=== PATIENT | female | born 1990 ===

== ENCOUNTER → 2016-11-26 | Day surgery (SDC) | payer OTHER ==
[~2016-11-26] MED LIST: ACETAMINOPHEN 500 MG TAB ONE; ACETAMINOPHEN 500 MG TAB PO ONE; BUPIVACAINE/EPI 0.25% 30 ML SDV ONE; CEFAZOLIN 2 GM/DEXTROSE/100 ML BAG IV ONE; DEXAMETHASONE 4 MG/ML VIAL ONE; KETOROLAC 30 MG/1 ML SDV ONE; LIDOCAINE 1% 5 ML SDV ID PRN; LIDOCAINE 1% 5 ML SDV ONE; LIDOCAINE 2% 5 ML SDV ONE; LIDOCAINE 2% JELLY 5 ML TUBE ONE; LR 1,000 ML IV ONE; MEPERIDINE 25 MG/ML SYR ONE; MIDAZOLAM 2 MG/2 ML VIAL ONE; ONDANSETRON 4 MG/2 ML VIAL ONE; OXYCODONE/APAP 5/325 TAB PO PRN; PREGABALIN 75 MG CAP ONE; PREGABALIN 75 MG CAP PO ONE; PROPOFOL 200 MG/20 ML VIAL ONE; ceFAZolin 2 GM/DEXTROSE 100 ML IV ONE; fentaNYL 250 MCG/5 ML INJ ONE
--- NOTE | 2016-11-26 16:49 | DX ---
Intraoperative Fluoroscopy for Left Hip Surgery HISTORY: Left hip arthroscopy. Fluoroscopy time: Two seconds. Cumulative dose 0.44 mGy. FINDINGS: Single image demonstrates a distracted left hip. A needle is seen overlying the left femo ral neck, and a thin linear ender is seen overlying the left hip joint over the superior aspect of the femoral head. IMPRESSION: Intraoperative fluoroscopy for left hip surgery.
== END | disposition home or self-care (01) ==
LOC: FSGY 10:00
PROVIDERS: ATTEND Orthopaedic Surgery Sports Medicine
PROC: 0SQB4ZZ Repair Left Hip Joint, Percutaneous Endoscopic Approach (ICD-10-PCS; principal; 2016-11-26 11:30)
DX: M24.152 Other articular cartilage disorders, left hip (principal); M25.852 Other specified joint disorders, left hip
CPT/HCPCS: 29916; 76001; C1769; C1713; J0171; J0690; J1100; J1885; J2250; J2405; J2704; J3010

== ENCOUNTER 2017-09-16 12:10 | Day surgery (SDC) | payer OTHER ==
--- NOTE | 2017-09-15 09:22 | PDGENHP ---
History and Physical - Chief Complaint Right Hip Pain - History of Present Illness 1. Left hip traumatic cartilage injury of the femoral head (and corresponding posterior socket) 2. 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 S/P Right hip arthroscopy x 2 HISTORY OF PRESENT ILLNESS: Gatois a 27 y.o.~very ~active female~who I have had the pleasure to consult on today.~I have enjoyed meeting her. She~lives in [place]. 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 ~She~is single; she~has no~children. ~Gatoenjoys playing tennis , working out and biking. Suzette's left~hip pain started , with marked~recalled trauma or injury, and with no~previous complaints.~Gatodoes not have~a known history of hip dysplasia. Suzette was treated with 2 right hip arthroscopy by Dr. Leroy Vanegas ([facility]) for right hip pain. First one was in and July 2016. Presentation today is of~anterior, groin and lateral left~hip pain. ~The hip does not~wake her~at night and does~click and catch on her. Sitting can be uncomfortable~for her. Suzette~does~report suffering from lower back pain episodes. Suzette~has~participated in physical therapy and has~tried other conservative measures including hip injections. The left hip steroid injection was US guided and she felt 85% better for 2 weeks. ~She~has not~received sufficient symptomatic improvement. Suzette~has~utilized medication for pain management, including NSAID. Suzette~has used medication for 2 weeks. Gatounderstands that she~has a hip and pelvis problem which should be researched and wishes to get a better understanding of her~hip status, followed by an establishment of a treatment strategy, hoping she~would be able to get back to her~well being active life. History: Past medical history: ~ Hashimotos thyroiditis and takes synthyroid. Relevant familial history: Both the parents have chronic pain. Past surgical history: No. Surgery Anesthesia Year Outcome 1 Right knee surgery GA 2015 Good 2 Right hand surgery GA 2013 Good 3 Right hip surgery X 2 GA Good Gatodenies problematic issues with general anesthesia in the past. I have reviewed, verified and agree with the past medical, surgical, family and social history. Current Medications:~has a current medication list which includes the following prescription(s): ibuprofen. ALLERGIES:~has No Known Allergies. Objective: Physical Examination: Gatois 6~feet 0~inches tall and weighs~165~Lbs. Gatois AAO x3; she~is well- nourished, in NAD. Skin is warm and dry. ~Breathing is non-labored. ~CV with RRR by pulse. Abdomen is soft, NTND. Currently, she~walks with a normal~gait. Trendelenburg sign is negative~and proprioception~is normal, both~sides. She~presents~with severe~signs of joint laxity.~Beightons Score: 5/8~( right hand surgery) She~is fit looking. ~~ Lower spine examination is negative~for sciatic or femoral nerve irritation with negative~SLR &~femoral stretch tests. Range of motion of the spine is normal~for flexion, extension, and rotations, with no~associated pain. Strength, Sensation and pulses are normal - bilaterally Ankles and knees exams are normal~and no~mal-alignment is evident. She~has~1 cm right short leg length discrepancy. Thigh circumference is symmetric~with no evidence for muscle atrophy~on both~ sides. Hip ROM (degrees): FL ER At 90~hip FL IR At 90~hip FL AB AD EX IR Neutral hip ER Neutral hip R 105 50 5 45 5 5 30 35 L 105 45 15 45 5 0 30 25-30 Specific hip and pelvis tests: Quadrant MARYBETH Roll Add. Longus R ++ ( Adductor origin) ++( Adductor origin) Negative Negative L +++ +++ Negative Negative Glut. Med ITB Pos. Imp R Negative 5/5 strength Negative 5/5 strength Negative L Negative 5/5 strength Negative 5/5 strength Negative Squeeze test measured normal Bony Symphysis pubis is pain free~to touch while concentric activity of the rectus abdominis, does not~produce pain at its insertion. Ilio Psos specific tests are positive for pain during cycling for the left hip~ and remarkable for no snap. No hip~capsule tenderness. Greater trochanteric burse is pain free~on both hips. Piriformis tests: FAIR is negative, with no~local signs of neuritis related to sciatic nerve. SIJs examination is normal~with normal~MARYBETH in relation and local tenderness. Hamstrings tests are negative~functional contraction and negative~tendinopathy both hips. On a daily basis, the following percentages reflect Suzette's overall total pain: Deep hip: 100% Imaging: Radiology studies which I~have personally reviewed, analyzed and measured are below: XR: AP of the hip and pelvis: Performed in a good~technique Coccyx to pubic symphysis distance 1.2~cm. 5 Degree~caudal/cephal [place]~Lines are preserved. Minimal~Pathological signs are seen in the Symphysis Pubis. Minimal~Pathological signs are seen at the Ischial~tuberosity. ~ Specific measurements show: NSA~ LCE Sourcil~Angle Sharp's angle Lat. Cam Lat. Pincer C.Over~sign Head~Coverage % ATDmm R N 32 3 37 - - - N N L N 27 3 40 + - - N N Pos. wall sign ISS NAD ~~Dysplasia Comments R + Negative 14~mm Negative L Negative Negative 15.5~mm Negative Sclerosis Sup. Lat. OA Cysts Joint Space-WBZ Joint Space-Medial R Negative Negative Negative 5.0~mm 4.6~mm L Negative Negative Negative 5.1~mm 4.5~mm X Table lateral: Anterior cam lesion is seen~on both hips. Alpha Angle: ~ Right 55~dergrees Left 62~degrees MRI shows:~Cartilage defect with subchondral edema of the femoral head and hypertrophic labrum with labral tear. 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 Physical examination, imaging, and her~story correspond with the diagnosis mentioned above. I explained that she has femoral head cartilage injury (Cartilage flap/bone edema)~which is causing mechanical symptoms in her left hip and she also has features of femoroacetabular impingement (MISA) on the same side. Steroid injection was hopefull for 2 weeks only, until she resumed playing and had to stop due to pain and inability to perform. The main issue here is the proved (per MRI) traumatic cartilage defect which can not heal conservatively, even if she will "lay low" for while. She is afraid to lose the whole season (both from financial and career standpoints). I explained that femoroacetabular impingement (MISA) arises due to a bony or soft tissue conflict between the femur (ball) and acetabulum (socket) caused by an abnormality in the shape of the hip joint. Over time, repetitive impingement can result in damage to the labrum and adjacent surface cartilage within the socket, ultimately giving rise to progressive osteoarthritis of the hip. I explained that although a labral tear can be a source of pain, it is rarely the root of the problem and typically occurs secondary to an underlying abnormality in the shape and mechanics of the hip joint. ~ I reviewed conservative treatment options~including activity modification , physical therapy, non-steroidal anti-inflammatory medications, and various injections (corticosteroid and PRP) aimed at reducing inflammation in the hip joint or/and preventing cartilage irritation and dynamic impingement. Patients who have failed conservative management and continue to experience symptoms are candidates for hip arthroscopy, a minimally invasive surgery that can definitively address~the underlying problem. In her case, She has two options. She can have either hip arthroscopy to address the cartilage damage alone or hip arthroscopy ~to address all of her underlying issues including cam resection and labral repair. However, recovery will be longer with the second one. At this point, She is very keen on playing [place] open starting in Mar, 2017 and she want to try hip arthroscopy just to address the cartilage issue. We also talked about what to do in case if we find a traumatic cartilage defect intraoperatively which will put her nonweightbearing for 6 weeks and she would have all the procedures in case if that is the case. Gatowill review the info presented. We are going to try and the CT pelvis imaging study she had in [place] to better understand her problem and also for surgical planning. We might consider repeating the CT in case if we could not get the CT. Gatowill talk with our frame polisher about possible surgery dates. Gatois happy with this plan. I wish~Gatoall the best, ~~ Dontrell Noonan MD History Information - Allergies/Home Medication List Allergies/Adverse Reactions: No Known Allergies Allergy (Unverified 11/25/16 14:33) Home Medications: Ibuprofen 11/25/16 [Last Taken 11/23/16] Multivitamin 11/25/16 [Last Taken 11/25/16 18:00] Synthroid 11/25/16 [Last Taken 11/26/16 08:30] I have personally reviewed and updated: medical history - Social History Smoking Status: Never smoked Review of Systems Review of Systems: Physical Exam Physical Exam:
[2017-09-16] MEDS ORDERED: ACETAMINOPHEN 500 MG TAB PO ONE (12:19)
[2017-09-16] MEDS ORDERED: PREGABALIN 150 MG CAP PO ONE (12:19)
[2017-09-16] MEDS ORDERED: ceFAZolin 2 GM/SWFI 2 GM/20 ML SYR IVP ONE (12:19)
[2017-09-16] MEDS ORDERED: LR 1,000 ML IV ONE (12:21)
[2017-09-16] MEDS ORDERED: LIDOCAINE 1% 2 ML INJ ID PRN (12:21)
[2017-09-16] MEDS ORDERED: EPINEPHrine 30 MG/30 ML MDV ONE (13:43)
[2017-09-16] MEDS ORDERED: BUPIVACAINE 0.25% 30 ML SDV ONE (13:43)
[2017-09-16] MEDS ORDERED: MIDAZOLAM 2 MG/2 ML VIAL IVP ONE (14:12)
[2017-09-16] MEDS ORDERED: SCOPOLAMINE HYDROBROMIDE 1 MG/3 DAYS PATCH TD ONE (14:13)
--- NOTE | 2017-09-16 14:14 | PDANEPAE ---
ANE History of Present Illness right hip pain ANE Past Medical History - Cardiovascular History Hx Hypertension: No Hx Arrhythmias: No Hx Chest Pain: No Hx Coronary Artery / Peripheral Vascular Disease: No Hx CHF / Valvular Disease: No Hx Palpitations: No - Pulmonary History Hx COPD: No Hx Asthma/Reactive Airway Disease: No Hx Recent Upper Respiratory Infection: No Hx Sleep Apnea: No Sleep Apnea Screening Result - Last Documented: Negative - Neurologic History Hx Cerebrovascular Accident: No Hx Seizures: No Hx Dementia: No - Endocrine History Hx Diabetes: Yes Endocrine History Comment: HYPOTHYROID - Renal History Hx Renal Disorders: No - Liver History Hx Hepatic Disorders: No - Neurological & Psychiatric Hx Hx Neurological and Psychiatric Disorders: No - Cancer History Hx Cancer: No - Congenital Disorder History Hx Congenital Disorders: No - GI History Hx Gastrointestinal Disorders: No - Other Health History Other Health History: INJURED HIP 10/2016 PAIN SINCE - Chronic Pain History Chronic Pain: Yes (LT HIP) - Surgical History Prior Surgeries: R KNEE SCOPE 3 WKS AGO IN [facility]. LABRAL REPAIRS 1 LEFT/2 RIGHT. RT HIP SCOPE X2 07/2016 IN [facility]. RT KNEE GRAFT 2015. RT HAND SURGERY 2013 ANE Review of Systems Review of Systems: - Exercise capacity METS (RN): 5 METS ANE Patient History - Allergies Allergies/Adverse Reactions: No Known Allergies Allergy (Unverified 11/25/16 14:33) - Home Medications Home Medications: Ibuprofen 11/25/16 [Last Taken 11/23/16] Multivitamin 11/25/16 [Last Taken 11/25/16 18:00] Synthroid 11/25/16 [Last Taken 11/26/16 08:30] - NPO status NPO Since - Liquids (Date): 09/16/17 NPO Since - Liquids (Time): 09:30 NPO Since - Solids (Date): 09/15/17 NPO Since - Solids (Time): 22:00 - Smoking Hx Smoking Status: Never smoked - Family Anes Hx Family Hx Anesthesia Complications: NEG ANE Labs/Vital Signs - Vital Signs Blood Pressure: 99/66 Heart Rate: 55 Respiratory Rate: 18 O2 Sat (%): 100 Height: 182.88 cm Weight: 77.111 kg ANE Physical Exam - Airway Neck exam: FROM Mallampati Score: Class 1 Mouth exam: normal dental/mouth exam - Pulmonary Pulmonary: no respiratory distress - Cardiovascular Cardiovascular: regular rate and rhythym - ASA Status ASA Status: I ANE Anesthesia Plan Anesthesia Plan: general endotracheal anesthesia
[2017-09-16] MEDS ORDERED: LIDOCAINE 2% 5 ML SDV ONE (15:28)
[2017-09-16] MEDS ORDERED: fentaNYL 100 MCG/2 ML INJ ONE ×2 (15:28→18:17)
[2017-09-16] MEDS ORDERED: HYDROmorphONE/DILAUDID 2 MG/ML INJ ONE (15:28)
[2017-09-16] MEDS ORDERED: PROPOFOL 200 MG/20 ML VIAL ONE (15:29)
[2017-09-16] MEDS ORDERED: NALOXONE HCL 0.4 MG/ML INJ IVP PRN (17:06)
[2017-09-16] MEDS ORDERED: ONDANSETRON 4 MG/2 ML VIAL IVP PRN (17:06)
[2017-09-16] MEDS ORDERED: HYDROmorphONE/DILAUDID 1 MG/ML INJ IVP PRN (17:06)
[2017-09-16] MEDS ORDERED: MEPERIDINE 25 MG/ML SYR IVP PRN (17:06)
[2017-09-16] MEDS ORDERED: PROMETHAZINE HCL 25 MG/ML INJ IVP PRN (17:06)
[2017-09-16] MEDS ORDERED: MEPERIDINE 25 MG/ML SYR ONE (18:11)
--- NOTE | 2017-09-16 18:12 | POSTANESTH ---
Post Anesthetic Evaluation Cardiovascular Status: Normal, Stable Respiratory Status: Normal, Stable Level of Consciousness/Mental Status: Can Participate in Eval Pain Control: Adequate, Prn Tx Ordered Nausea/Vomiting Control: Adequate, Prn Tx Ordered Complications Possibly Related to Anesthesia: None Noted
[2017-09-16] MEDS ORDERED: HYDROmorphONE/DILAUDID 1 MG/ML INJ ONE (18:17)
[2017-09-16] MEDS: fentaNYL 100 MCG/2 ML INJ IVP PRN ×2 (18:18→18:31)
[2017-09-16] MEDS ORDERED: ONDANSETRON 4 MG/2 ML VIAL ONE (18:26)
[2017-09-16 18:34] VITALS: TEMP 97.3
[2017-09-16] MEDS ORDERED: PROMETHAZINE HCL 25 MG/ML INJ ONE (18:37)
[2017-09-16 19:05] VITALS: BP 105/79
[2017-09-16 19:08] VITALS: PULSE 52; RESP 14
[2017-09-16 19:27] VITALS: O2SAT 97
== END 2017-09-16 19:34 | disposition home or self-care (01) ==
LOC: FSGY 12:10
PROVIDERS: ATTEND Orthopaedic Surgery Sports Medicine
PROC: 0SB94ZZ Excision of Right Hip Joint, Percutaneous Endoscopic Approach (ICD-10-PCS; principal; 2017-09-16 13:45)
PROC: 0SQ94ZZ Repair Right Hip Joint, Percutaneous Endoscopic Approach (ICD-10-PCS; principal; 2017-09-16 13:45)
DX: S73.191A Other sprain of right hip, initial encounter (principal); Q65.89 Other specified congenital deformities of hip
CPT/HCPCS: C1713; J0171; J0690; J1170; J2250; J2405; J2550; J2704; J3010